=== PATIENT | female | born 1960 | race Caucasian/White ===

== ENCOUNTER → 2018-08-24 | Outpatient (CLI) | payer BC ==
[~2018-08-24] MED LIST: PROMETHAZINE HC25 M1 PO; TYLENOL WITH C1 EACH PO; Z.0.AMBIEN CR12.5 MG; Z.0.SYNTHROID88 MCG
--- NOTE | 2018-08-24 16:44 | Diagnostic Imaging Report ---
EXAMINATION: CT scan of the chest without contrast. TECHNIQUE: Spiral CT images of the chest were performed from the lung apices to the level of the adrenal glands. No intravenous contrast was administered per referring physician request Coronal and sagittal reformatted images were obtained. COMPARISON: 11/29/2014 CLINICAL HISTORY:Chest pain pulmonary nodules DISCUSSION: ABSENCE OF INTRAVENOUS CONTRAST DECREASES SENSITIVITY FOR DETECTION OF FOCAL LESIONS AND VASCULAR PATHOLOGY. LINES/TUBES: None. LUNGS AND AIRWAYS: Stable 0.4 cm nodule in the right lower lobe along the major fissure (series 3 image 48). Calcified right middle lobe granuloma also unchanged. The lungs are otherwise clear. No additional pulmonary nodules, masses or consolidation. The airways are normal, without endobronchial lesions. PLEURA: No pneumothorax or pleural effusions. HEART AND MEDIASTINUM: The thyroid gland is normal. The heart and pericardium are within normal limits. LYMPH NODES: There is no mediastinal, hilar or axillary lymphadenopathy. ABDOMEN: Visualized portions of the liver, spleen, adrenals, pancreas, and kidneys are unremarkable. Status post cholecystectomy. BONES AND SOFT TISSUES: No acute bony abnormalities. IMPRESSION: 0.4 cm right lower lobe nodule is stable dating to November 2014 and likely represents a benign granuloma. No further imaging follow-up is needed. Signed by: Dr. Shyam Ortega M.D. on 08/24/2018 4:40 PM
== END ==
LOC: CT 15:48
PROVIDERS: ATTEND Family Medicine
DX: R07.9 Chest pain, unspecified (principal); R91.1 Solitary pulmonary nodule
CPT/HCPCS: 71250

== ENCOUNTER → 2020-04-22 | Outpatient (CLI) | payer BC ==
--- NOTE | 2020-04-22 09:00 | Diagnostic Imaging Report ---
EXAMINATION: CHEST 2 VIEWS INDICATION: Cough COMPARISON: Chest CT 08/24/2018 FINDINGS: LINES/TUBES:None LUNGS:The lungs are well-inflated. No focal consolidation or pulmonary edema. PLEURA:No pleural effusion or pneumothorax. MEDIASTINUM:The cardiomediastinal silhouette appears normal in size and shape. BONES/SOFT TISSUES:No acute osseous injury. Status post cholecystectomy. ABDOMEN:No free air under the diaphragm. IMPRESSION: No focal pneumonia or pulmonary edema. Signed by: Jyoti Warren MD on 04/22/2020 8:57 AM
== END ==
LOC: RAD 07:11
PROVIDERS: ATTEND Family Medicine
DX: R05 Cough (principal)
CPT/HCPCS: 71046

== ENCOUNTER → 2022-11-25 | Outpatient (CLI) | payer BC ==
[2022-11-25 14:57] LABS: CREATININE, SERUM 1.01 mg/dL (0.57-1.11)
== END ==
LOC: CT 14:07
PROVIDERS: ATTEND Internal Medicine Interventional Cardiology
DX: D44.6 Neoplasm of uncertain behavior of carotid body (principal)
CPT/HCPCS: 36415; 70498; 82565; 84520